=== PATIENT | female | born 1975 | race Caucasian/White ===

== ENCOUNTER 2017-08-14 08:14 | Day surgery (SDC) | payer OTHER ==
[2017-08-13 11:39] LABS: BASOPHILS # (AUTO) 0.1 K/uL (0.00-0.22); EOSINOPHILS # (AUTO) 0.1 K/uL (0-0.4); EOSINOPHILS % (AUTO) 1.8 % (0.0-4.0); HEMATOCRIT 38.1 % (36-48); HEMOGLOBIN 12.4 g/dL (12.0-16.0); LYMPHOCYTES # (AUTO) 2.2 K/uL (2.5-16.5); LYMPHOCYTES % (AUTO) 26.9 % (20.5-51.1); MEAN CORPUSCULAR HEMOGLOBIN 26 pg (27-31); MEAN CORPUSCULAR HGB CONC 33 g/dL (33-37); MEAN CORPUSCULAR VOLUME 79 fL (80-94); MONOCYTES # (AUTO) 0.6 K/uL (0.8-1.0); MONOCYTES % (AUTO) 7.3 % (1.7-9.3); NEUTROPHILS # (AUTO) 5.3 K/uL (1.8-7.7); PLATELET COUNT (AUTO) 373 K/uL (140-450); RED BLOOD CELL COUNT(AUTO) 4.82 MIL/uL (4.20-5.40); RED CELL DISTRIBUTION WIDTH 15.3 % (11.6-13.7); WHITE BLOOD COUNT (AUTO) 8.3 K/uL (4.8-10.8)
[2017-08-13 11:48] LABS: ALBUMIN 3.4 g/dL (3.4-5.0); ANION GAP 14.6 (8-16); CARBON DIOXIDE 29.9 mmol/L (21-32); CREATININE 1.2 mg/dL (0.6-1.3); POTASSIUM 3.5 mmol/L (3.5-5.1); TOTAL BILIRUBIN 0.2 mg/dL (0.0-1.0)
[~2017-08-14] VITALS: Ht 160 cm; Wt 77.1 kg
[2017-08-14] MEDS ORDERED: ORE25 PO (09:00)
[2017-08-14] MEDS ORDERED: CITA20TA15 PO (09:02)
[2017-08-14] MEDS ORDERED: BUPIVACAINE-MPF 0.25% 30 ML VIAL INJ ONE (09:23)
[2017-08-14] MEDS ORDERED: DESFLURANE 240 ML BTL INH ONE (10:14)
[2017-08-14] MEDS ORDERED: GLYCOPYRROLATE 0.2 MG/ML VIAL IV ONE (10:14)
[2017-08-14] MEDS ORDERED: PROPOFOL 200 MG/20 ML VIAL IV ONE ×2 (10:14→14:42)
[2017-08-14] MEDS ORDERED: LIDOCAINE 2% 100 MG/5 ML SYR IVP ONE (10:14)
[2017-08-14] MEDS ORDERED: NEOSTIGMINE 1:1000 10 MG/10 ML VIAL IM ONE (10:14)
[2017-08-14] MEDS ORDERED: ROCURONIUM 50 MG/5 ML VIAL IV ONE (10:14)
[2017-08-14] MEDS ORDERED: ONDANSETRON 4 MG/2 ML VIAL IVP ONE (10:14)
[2017-08-14] MEDS ORDERED: SUCCINYLCHOLINE CHLORIDE 200 MG/10 ML VIAL IV ONE (10:14)
[2017-08-14] MEDS ORDERED: DEXAMETHASONE 4 MG/ML VIAL IVP ONE (10:14)
[2017-08-14] MEDS ORDERED: MIDAZOLAM 2 MG/2 ML VIAL ONE (10:18)
[2017-08-14] MEDS ORDERED: fentaNYL 0.05 MG/ML VIAL ONE (10:19)
[2017-08-14] MEDS ORDERED: ONDANSETRON 4 MG/2 ML VIAL IVP PRN (10:50)
[2017-08-14] MEDS ORDERED: HYDROmorphone PFS 2 MG/ML SYR IVP PRN ×2 (10:50→11:55)
[2017-08-14] MEDS ORDERED: MORPHINE SULFATE 4 MG/ML SYR IV PRN (11:55)
[2017-08-14] MEDS ORDERED: HYDROcodone/APAP 5/325 MG 1 TAB TAB PO PRN (11:55)
[2017-08-14] MEDS ORDERED: MORPHINE SULFATE 2 MG/ML SYR IVP PRN (11:55)
[2017-08-14] MEDS ORDERED: ONDANSETRON 4 MG/2 ML VIAL IV PRN (11:55)
[2017-08-14] MEDS: HYDROmorphone PFS 2 MG/ML SYR ONE ×2 (12:03→12:15)
== END 2017-08-14 13:27 | disposition home or self-care (01) ==
LOC: MDS 08:14 → MMU 08:15 → MDS 13:27
PROVIDERS: ATTEND Surgery
DX: K80.20 Calculus of gallbladder without cholecystitis without obstruction (principal); I10 Essential (primary) hypertension; K21.9 Gastro-esophageal reflux disease without esophagitis; Z98.51 Tubal ligation status
CPT/HCPCS: 36415; 47562; 71045; 80053; 81025; 82374; 85025; 86886; 86900; 86901; C1887; J0330; J0690; J1100; J1170; J2001; J2250; J2405; J2704; J2710; J3010; J3490; J7030; J7060; J7120; Q0092